=== PATIENT | female | born 1970 ===

== ENCOUNTER 2018-09-20 12:32 | Emergency (ER) | payer OTHER ==
[2018-09-20 12:47] VITALS: BP 117/52
--- NOTE | 2018-09-20 13:04 | UC ---
Back Pain HPI - HPI Summary HPI Summary: Ms. Chowdary started to feel low back pain while she was at yoga yesterday but continued to exercise. Since that time it has gotten worse and worse. She can walk normally but she has some pain. She's had no change in her bowels or bladder and no weakness - History of Current Complaint Chief Complaint: UCBackPain Stated Complaint: BACK PAIN Time Seen by Provider: 09/20/18 12:53 Hx Obtained From: Patient Hx Last Menstrual Period: 09/18/18 Timing: Constant Pain Intensity: 4 Back Pain: Is Discrete @ - low midline Character: Sharp, Aching Aggravating Factor(s): Movement, Lifting, Bending, Walking Associated Signs And Symptoms: Positive: Negative - Allergies/Home Medications Allergies/Adverse Reactions: Allergies Allergy/AdvReac Type Severity Reaction Status Date / Time No Known Allergies Allergy Verified 09/20/18 12:47 Home Medications: Home Medications Cold-Hot Pack [Hot-Cold Compress] 1 applic TOPICAL ONCE PRN 09/20/18 [History Confirmed 09/20/18] PMH/Surg Hx/FS Hx/Imm Hx Previously Healthy: Yes - Surgical History Surgical History: None - Social History Alcohol Use: None Substance Use Type: None Smoking Status (MU): Never Smoked Tobacco Review of Systems Constitutional: Negative Respiratory: Negative Cardiovascular: Negative Gastrointestinal: Negative Genitourinary: Negative Neurovascular: Negative Musculoskeletal: Other: - As above Neurological: Negative All Other Systems Reviewed And Are Negative: Yes Physical Exam - Summary Physical Exam Summary: She is nontoxic in appearance and her vital signs are stable. Triage Information Reviewed: Yes Appearance: Well-Appearing, Pain Distress - Mild to moderate Vital Signs: Initial Vital Signs Temp 98.3 F 09/20/18 12:41 Pulse 80 09/20/18 12:41 Resp 18 09/20/18 12:41 BP 117/52 09/20/18 12:41 Pulse Ox 98 09/20/18 12:41 Vital Signs Reviewed: Yes ENT Exam: Normal Neck exam: Normal Neck: Positive: Supple Respiratory Exam: Normal Cardiovascular Exam: Normal Abdominal Exam: Normal Musculoskeletal Exam: Normal - bilateral straight leg raise at about 80 degrees , Other Neurological Exam: Normal Diagnostics - Radiology L/S spine Radiology Interpretation Completed By: Radiologist Summary of Radiographic Findings: No Fracture, loss of lordosis Back Pain Course/Dx - Course Course Of Treatment: Ms. Chowdary had loss of lordosis on her x-ray confirming the diagnosis of low back strain and I will treat her symptomatically. - Differential Dx/Diagnosis Provider Diagnoses: Low Back Strain Discharge - Sign-Out/Discharge Documenting (check all that apply): Patient Departure All imaging exams completed and their final reports reviewed: Yes - Discharge Plan Condition: Stable Disposition: HOME Referrals: No Primary Care Phys,NOPCP [Primary Care Provider] - - Billing Disposition and Condition Condition: STABLE Disposition: Home
== END 2018-09-20 14:04 | disposition home or self-care (01) ==
LOC: UCEAST 12:32
DX: S39.012A Strain of muscle, fascia and tendon of lower back, initial encounter (principal); X50.1XXA Overexertion from prolonged static or awkward postures, initial encounter; Y93.42 Activity, yoga; Y92.9 Unspecified place or not applicable
CPT/HCPCS: 72110; 99202; G0463